=== PATIENT | male | born 1990 | race Caucasian/White ===

== ENCOUNTER 2018-08-24 14:08 | Emergency (ER) | payer MEDICAID ==
[~2018-08-24] VITALS: Ht 160 cm; Wt 80.0 kg
[2018-08-24 14:16] VITALS: BP 169/78; PULSE 93; RESP 18; Ht 160 cm; Wt 80.0 kg
[2018-08-24] MEDS ORDERED: ALBUTEROL 0.083% (NEB) 2.5 MG/3 ML AMP HHN STA (14:32)
[2018-08-24] MEDS ORDERED: FAMOTIDINE 20 MG TAB PO ONE (15:00)
[2018-08-24] MEDS ORDERED: DIPHENHYDRAMINE 50 MG INJ IM ONE (15:00)
[2018-08-24] MEDS ORDERED: DEXAMETHASONE 10 MG/ML 1 ML INJ IM ONE (15:00)
--- NOTE | 2018-08-24 15:23 | ERD ---
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 The patient today's complaining of mild sore throat with difficulty swallowing. He denies shortness of breath, no cough, he reports that the rash is getting worse. No history of previous episodes. The patient has not taken any medications for his symptoms. ROS All systems reviewed and are negative except as per history of present illness. Medications Home Meds Active Scripts Diphenhydramine Hcl* (Benadryl*) 25 Mg Cap, 25 MG PO Q6 PRN for ITCHING/RASH, #20 TAB Prov:AKIKO JOSE MD 08/24/18 Prednisone* (Prednisone*) 20 Mg Tab, 40 MG PO DAILY for 4 Days, TAB Prov:AKIKO JOSE MD 08/24/18 Allergies Allergies: Coded Allergies: No Known Allergy (Unverified , 08/24/18) PMhx/Soc Medical and Surgical Hx: pt denies Medical Hx, pt denies Surgical Hx Hx Alcohol Use: Yes (rarely) Hx Substance Use: No Hx Tobacco Use: No Physical Exam Vitals Vital Signs Date Temp Pulse Resp B/P (MAP) Pulse Ox O2 O2 Flow FiO2 Time Delivery Rate 08/24/18 93 18 99 21 15:06 08/24/18 98.1 93 18 169/78 99 14:16 (108) Physical Exam Const: No acute distress Head: Atraumatic Eyes: Normal Conjunctiva ENT: Normal External Ears, Nose and Mouth. Neck: Full range of motion. No meningismus. Resp: Clear to auscultation bilaterally, no wheezing. Cardio: Regular rate and rhythm, no murmurs Abd: Soft, non tender, non distended. Normal bowel sounds Skin: Generalized urticarial rash. Back: No midline or flank tenderness Ext: No cyanosis, or edema Neur: Awake and alert Psych: Normal Mood and Affect Results 24 hrs Current Medications Medications Dose Sig/Lyssa Start Time Status Last (Trade) Ordered Route PRN Stop Time Admin Dose Reason Admin Albuterol 5 mg ONCE STAT 08/24/18 DC 08/24/18 (Proventil HHN 14:32 15:05 0.083% (Neb)) 08/24/18 14:36 50 mg ONCE ONCE 08/24/18 DC 08/24/18 Diphenhydrami IM 15:00 14:47 ne HCl 08/24/18 15:01 (Benadryl) 8 mg ONCE ONCE 08/24/18 DC 08/24/18 Dexamethasone IM 15:00 14:46 (Decadron) 08/24/18 15:01 Famotidine 20 mg ONCE ONCE 08/24/18 DC 08/24/18 (Pepcid) PO 15:00 14:47 08/24/18 15:01 Procedures/MDM Differential diagnosis include but not limited to: Acute allergic reaction, autoimmune dermatitis, medication side effect, low suspicion for angioedema, anaphylactic shock, Mcnally-Rupesh syndrome. Physical examination and clinical presentation consistent most likely with acute allergic reaction During the ED course the patient remained hemodynamically stable stable, no new complaints. The patient received treatment with IM steroids, IM Benadryl present ing overall improvement of the symptoms. Results and clinical impression discussed with patient whom agrees with management. The patient is stable to be treated outpatient and will be discharged home with a Rx for prednisone and Benadryl, some side effects of prescribed medications (headache, rash, nausea, vomiting, diarrhea, drowsiness, habituation, bleeding, hypertension, interactions with other medications) were reviewed. The patient was instructed to follow up with the primary care provider in the next 48h. If symptoms persist, worsen or new symptoms develop, then patient should return to the ED immediately. Instructions explained and given directly by me with acknowledgment and demonstrated understanding. Disclaimer: Inadvertent spelling and grammatical errors are likely due to EHR/dictation software use and do not reflect on the overall quality of patient care. Also, please note that the electronic time recorded on this note does not necessarily reflect the actual time of the patient encounter. Departure Diagnosis: Primary Impression: Allergic reaction Condition: Stable Additional Instructions: Muchas aleksandr por [facility] para amezcua servicio. Esperamos que en amezcua visita a la chanelle de emergencia amezcua problema medico haya sido solucionado y que se sienta mucho mejor. Para estar seguros que amezcua mejoria sigue en proceso, le pedimos el favor de hacer patricia ilda de seguimiento medico con amezcua doctor primario en los proximos 2-4 kearns. Lleve con usted estos documentos y las medicinas recetadas. Si ita sintomas empeoran, NO SE ESPERE, por favor regrese a chanelle de emergencia INMEDIATAMENTE. En marely que usted no tenga un mdico de atencin primaria: Llame al mdico o clnica comunitaria de referencia que aparece abajo elda las horas de consultorio para hacer patricia ilda para que le vean. CLINICAS: [place] [id number] [phone] [facility] [phone] [address] [facility] [phone] [address] [place] [phone] [address] [place] [id number] [phone] [facility]. [phone] AKIKO CAUSEY MD Aug 24, 2018 15:23
[2018-08-24] MEDS ORDERED: PRED20TA PO (15:27)
[2018-08-24] MEDS ORDERED: BEN25 PO (15:27)
== END 2018-08-24 15:36 | disposition home or self-care (01) ==
LOC: FTE 14:08
DX: L50.9 Urticaria, unspecified (principal); R06.02 Shortness of breath
CPT/HCPCS: 94664; 96372; J1100; J1200; Z7502; Z7610

== ENCOUNTER 2018-08-29 12:47 | Emergency (ER) | payer MEDICAID ==
[~2018-08-29] VITALS: Ht 165.1 cm; Wt 68.5 kg
[~2018-08-29 12:47] MED LIST: BEN25 PO; PRED20TA PO
[2018-08-29 12:49] VITALS: BP 141/88; PULSE 73; RESP 18; Ht 165.1 cm; Wt 68.5 kg
[2018-08-29] MEDS ORDERED: HYDR-3029 PO (14:05)
[2018-08-29] MEDS ORDERED: HC30CR25 TOP (14:05)
--- NOTE | 2018-08-29 14:11 | ERD ---
ER Documentation Chief Complaint Chief Complaint generalized rash with itching x 1 week HPI 27-year-old male presenting with generalized rash x1 week. Patient was exposed to poison oak and has had irritation ever since. Patient states she was seen her last week and given medications that helped his symptoms however he has run out. Patient denies any swelling. Denies any fevers. 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 Denies other medical problems. NKDA. Surgical history denies social history denies ROS All systems reviewed and are negative except as per history of present illness. Medications Home Meds Active Scripts Hydrocortisone* Topical (Hydrocortisone* Topical) 2.5%-28.3 Gm Cream..g., 1 APPLIC TOP BID, #1 TUB Prov:JARETT ESPINOZA PA-C 08/29/18 Hydroxyzine Hcl* (Hydroxyzine Hcl*) 10 Mg Tablet, 10 MG PO Q6H PRN for ITCHING, #30 TAB Prov:JARETT ESPINOZA PA-C 08/29/18 Diphenhydramine Hcl* (Benadryl*) 25 Mg Cap, 25 MG PO Q6 PRN for ITCHING/RASH, #20 TAB Prov:AKIKO JOSE MD 08/24/18 Prednisone* (Prednisone*) 20 Mg Tab, 40 MG PO DAILY for 4 Days, TAB Prov:AKIKO JOSE MD 08/24/18 Allergies Allergies: Coded Allergies: No Known Allergy (Unverified , 08/24/18) PMhx/Soc Hx Alcohol Use: Yes (rarely) Hx Substance Use: No Hx Tobacco Use: No FmHx Family History: No diabetes, No coronary disease, No other Physical Exam Vitals Vital Signs Date Temp Pulse Resp B/P (MAP) Pulse Ox O2 O2 Flow FiO2 Time Delivery Rate 08/29/18 98.2 73 18 141/88 98 12:49 (105) Physical Exam GENERAL: The patient is well-appearing, well-nourished, in no acute distress CHEST: Clear to auscultation bilaterally. There are no rales, wheezes or rhonchi. HEART: Regular rate and rhythm. No murmurs, clicks, rubs or gallops. EXTREMITIES: Equal pulses bilaterally. There is no peripheral clubbing, cyanosis or edema. No focal swelling or erythema. Full range of motion. Grossly neurovascularly intact. SKIN: Excoriated skin noted to bilateral arms with mild erythema and elevation. Macular noted however no papular or vesicular rash. Procedures/MDM MDM: 27-year-old male presenting with rash to arms. Patient will be treated with supportive medications. I have low suspicion for viral or bacterial infection. I have low suspicion for parasitic infection. Patient is discharged with supportive medications and told to follow-up with primary care within 1 to 2 days for close evaluation. Patient is told symptoms change or worsen to return immediately to the ER. All questions answered at discharge Departure Diagnosis: Primary Impression: Rash Condition: Stable Patient Instructions: Self-Care for Skin Rashes Referrals: [facility] YOU HAVE RECEIVED A MEDICAL SCREENING EXAM AND THE RESULTS INDICATE THAT YOU DO NOT HAVE A CONDITION THAT REQUIRES URGENT TREATMENT IN THE EMERGENCY DEPARTMENT. FURTHER EVALUATION AND TREATMENT OF YOUR CONDITION CAN WAIT UNTIL YOU ARE SEEN IN YOUR DOCTORS OFFICE WITHIN THE NEXT 1-2 DAYS. IT IS YOUR RESPONSIBILITY TO MAKE AN APPOINTMENT FOR FOLOW-UP CARE. IF YOU HAVE A PRIMARY DOCTOR --you should call your primary doctor and schedule an appointment IF YOU DO NOT HAVE A PRIMARY DOCTOR YOU CAN CALL OUR PHYSICIAN REFERRAL HOTLINE AT IF YOU CAN NOT AFFORD TO SEE A PHYSICIAN YOU CAN CHOSE FROM THE FOLLOWING [facility] [address] [facility] [address] [facility] [address] [facility] [address] [facility] [address] [facility]. [facility]. [address] Additional Instructions: FOLLOW UP WITH YOUR PRIMARY CARE PHYSICIAN TOMORROW.Return to this facility if you are not improving as expected. JARETT ESPINOZA PA-C Aug 29, 2018 14:11
== END 2018-08-29 15:07 | disposition home or self-care (01) ==
LOC: FTE 12:47
DX: R21 Rash and other nonspecific skin eruption (principal)
CPT/HCPCS: 99283